=== PATIENT | male | born 1990 | race Caucasian/White ===

== ENCOUNTER → 2020-07-15 | Outpatient (CLI) | payer OTHER ==
[2020-07-15 16:40] LABS: ABSOLUTE NEUTROPHILS 5.3 thou/uL (1.4-8.2); BASOPHILS 0.7 % (0.0-2.0); HEMATOCRIT 44.9 % (42.0-52.0); HEMOGLOBIN 15.2 gm/dL (14.0-18.0); LYMPHOCYTES 15.6 % (24.0-44.0); MCH 28.1 pg (26.0-34.0); MCHC 33.8 g/dL (28.0-37.0); MONOCYTES 8.8 % (1.0-8.0); PLATELET COUNT 267 thou/uL (150-400); POLYS 72.9 % (36.0-66.0); RBC 5.41 mil/uL (4.50-6.00); RDW 13.9 % (10.5-14.5); URINE BILIRUBIN NEGATIVE (Negative); URINE BLOOD NEGATIVE (Negative); URINE CLARITY CLEAR; URINE COLOR YELLOW; URINE GLUCOSE-RANDOM* NEGATIVE (Negative); URINE KETONES NEGATIVE (Negative); URINE LEUKOCYTES-REFLEX NEGATIVE (Negative); URINE NITRITE-REFLEX NEGATIVE (Negative); URINE PROTEIN (DIPSTICK) TRACE (Negative); URINE SPECIFIC GRAVITY 1.025 (1.005-1.035); WBC 7.2 thou/uL (4.0-11.0)
[2020-07-15 16:57] LABS: ALBUMIN 4.1 g/dL (3.4-5.0); ANION GAP 11 mmol/L (7-16); BUN 10 mg/dL (7-18); CALCIUM 9.4 mg/dL (8.5-10.1); CHLORIDE 105 mmol/L (98-107); CHOLESTEROL 149 mg/dL (<200); CO2 25 mmol/L (21-32); CREATININE 0.9 mg/dL (0.7-1.3); GLUCOSE 93 mg/dL (74-106); HDL CHOLESTEROL 39 mg/dL (>40); LDL CHOLESTEROL 83 mg/dL (<100); SGOT 50 U/L (15-37); SGPT 123 U/L (30-65); SODIUM 141 mmol/L (136-145); TC:HDL 3.8 Ratio (Not establshd); TOTAL BILIRUBIN 1.6 mg/dL (0.2-1.0); TOTAL PROTEIN 7.6 g/dL (6.4-8.2); TRIGLYCERIDE 135 mg/dL (<150); VLDL 27 mg/dL (<40)
== END ==
LOC: LAB 15:51
PROVIDERS: ATTEND Family Medicine
DX: Z00.00 Encounter for general adult medical examination without abnormal findings (principal)